=== PATIENT | female | born 1975 | race Caucasian/White ===

== ENCOUNTER 2019-06-08 15:28 | Emergency (ER) | payer BC ==
[~2019-06-08] VITALS: Ht 162.6 cm; Wt 63.5 kg
[~2019-06-08 15:28] MED LIST: CIPROFLOXACIN500 M1 PO; COLACE100 MG PO; GYNODIOL0.5 MG PO; NORCO 5-325 TA1 EACH PO; ZOLOFT 50 MG TA50 M1 PO
[2019-06-08 15:54] LABS: URINE BLOOD 3+ (Negative); URINE CLARITY CLEAR; URINE COLOR YELLOW; URINE GLUCOSE-RANDOM* NEGATIVE (Negative); URINE KETONES NEGATIVE (Negative); URINE NITRITE-REFLEX NEGATIVE (Negative); URINE PROTEIN (DIPSTICK) 2+ (Negative); URINE SPECIFIC GRAVITY >= 1.030 (1.005-1.035); URINE UROBILINOGEN 0.2 E.U./dl (0.2-1.0)
[2019-06-08 16:02] LABS: ICTOTEST (BILI CONFIRMATORY) Negative (Negative); URINE BILIRUBIN NEGATIVE (Negative); URINE LEUKOCYTES-REFLEX 1+ (Negative)
[2019-06-08 16:12] LABS: BACTERIA-REFLEX None Seen /HPF (None Seen); CASTS None Seen /LPF (None Seen); SQUAMOUS 0-3 Few /LPF (0-3); URINE RBC >20 Many /HPF (0-2)
[2019-06-08 16:13] LABS: AMORPHOUS URATES Many /LPF (None Seen); WBC CLUMPS Moderate (None Seen); YEAST-REFLEX Present (None Seen)
[2019-06-08] MEDS ORDERED: KEFLEX500 M1 PO (16:59)
[2019-06-08 17:16] VITALS: BP 119/79
== END 2019-06-08 17:23 | disposition home or self-care (01) ==
LOC: ER 15:28
PROVIDERS: Physician Assistant
DX: N20.0 Calculus of kidney (principal); N39.0 Urinary tract infection, site not specified; R31.9 Hematuria, unspecified; F17.210 Nicotine dependence, cigarettes, uncomplicated; Z88.2 Allergy status to sulfonamides; Z90.710 Acquired absence of both cervix and uterus